=== PATIENT | female | born 1940 | race Caucasian/White ===

== ENCOUNTER 2016-07-17 09:42 | Inpatient (IN) | payer MEDICARE, OTHER ==
[~2016-07-17] VITALS: Ht 175.3 cm; Wt 117.0 kg
--- NOTE | ~2016-07-17 | ECHO ---
Transthoracic Echocardiography Report (TTE) Demographics Patient Name TYREE GUEVARA Date of Study 07/17/2016 Patient Number [id number] Visit Number [id number] Date of 1940 Room Number G6333 Accession Number [id number] Gender Female Age 76 year(s) Referring Conchita Peter [employer] Plant Worker Concha Phillips RVT, Physician RDCS Ty Abreu Physician Interpreting Indira Sheets Legal Paraprofessional Physician Supervising Ordering Physician Ty Abreu MD/MLP Nurse Stress Industrial Psychology Professor Conclusions Summary The estimated left ventricular ejection fraction is 35-40%. Moderate concentric left ventricular hypertrophy. Diastolic function indeterminate due to patient's arrhythmia. The left atrium is severely dilated. The right atrium is moderately dilated. Dilated IVC with poor inspiratory collapse consistent with elevated RA pressure. There is severe pulmonary hypertension. The pulmonary pressure (RVSP) is 69 mmHg. Small posterior pericardial effusion. Procedure Type of Study TTE procedure:2D Echocardiogram. Procedure Date Date: 07/17/2016 Start: 03:30 PM Study Location: Inpatient Portable Technical Quality: Adequate visualization Indications:CHF. Appropriate Use Criteria: 8 Patient Status: Routine Rhythm: Atrial fibrillation HR: 79 bpm BP: 166/97 mmHg M-Mode/2D Measurements LV Diastolic Dimension: 4.6 cm LV Systolic Dimension: 3.33 cm LV Septum Diastolic: 1.37 cm LV PW Diastolic: 1.39 cm AO Root Dimension: 3.1 cm Cardiac Output: 3.77 l/min LA Dimension: 4.5 cm LVOT: 2.3 cm LVOT VTI: 11.5 cm RV Base: 3.62 cm LV Stroke volume: 47.76 ml RV Length: 7.85 cm TAPSE: 1.76 cm TDI-S': 8.33 cm/s Doppler Measurements AV Peak Velocity: 0.79 m/s MV Peak E-Wave: 1.05 m/s AV Peak Gradient: 2.46 mmHg MV Peak A-Wave: 0.34 m/s AV Mean Gradient: 2 mmHg MV E/A Ratio: 3.09 LVOT Peak Velocity: 0.57 m/s MV P1/2t: 46 msec TR Gradient:54.46 mmHg PV Peak Velocity: 0.63 m/s Estimated RAP:15 mmHg PV Peak Gradient: 1.59 mmHg Estimated RVSP: 69 mmHg Estimated PASP: 69.46 mmHg E' Septal Velocity: 0.08 m/s A' Septal Velocity: 0.04 m/s E' Lateral Velocity: 0.12 m/s A' Lateral Velocity: 0.03 m/s Findings Left Ventricle Moderate concentric left ventricular hypertrophy. Diastolic function indeterminate due to patient's arrhythmia. Right Ventricle Mildly dilated right ventricle. Left Atrium The left atrium is severely dilated. There is no evidence of patent foramen ovale or atrial septal defect by color Doppler. Right Atrium The right atrium is moderately dilated. Dilated IVC with poor inspiratory collapse consistent with elevated RA pressure. IVC measures 2.94 cm. Mitral Valve Mild mitral regurgitation by color Doppler. Aortic Valve The aortic valve is mildly sclerotic. Tricuspid Valve Mild tricuspid regurgitation by color Doppler. There is severe pulmonary hypertension. The pulmonary pressure (RVSP) is 69 mmHg. Pulmonic Valve Normal pulmonic valve structure and function. Pericardial Effusion Small posterior pericardial effusion. Miscellaneous Visualized portions of the aortic root and ascending aorta appear normal in size. Pleural Effusion No evidence of pleural effusion. Contractility Score LV regional wall motion:(0-Non visualized 1-Normal 2-Hypokinesis 3-Akinesis 4-Dyskinesis 5-Aneurysm) Signature dtt: SAMMI SHAVER dtd: 07/17/16 1530 Physician Self Edit
--- NOTE | ~2016-07-17 | DS ---
PATIENT'S NAME: TYREE GUEVARA [facility] AGE: 76 Y [address] ROOM: [address] [address] LOCATION: GPCU ADMIT DATE: 07/17/2016 Discharge Summary DISCHARGE DATE: 07/21/2016 FAMILY PHYSICIAN: Oli Arango MD ATTENDING PHYSICIAN: Ty Abreu ADDENDUM: Discharge time spent on this patient is approximately 35 minutes, which included organizing home oxygen and also counseling the patient about this. TAM WILSON MD ODO/sridharl /[id number] d: 07/22/16 0137 t: 07/28/16 1416, DISCHARGE SUMMARY
--- NOTE | ~2016-07-17 | ENPV ---
Vascular Lower Extremities DVT Study Procedure Demographics Patient Name TYREE GUEVARA Date of Study 07/17/2016 Patient Number [id number] Gender Female Date of 1940 Age 76 Visit Number [id number] Height 69 Accession Number [id number] Weight 250.01 Referring Ty Cox Physician Physician Physician Ordering Physician Ty Abreu Thermostat Repairer Custom Bookbinder Bianca Nelson BS, RT Conclusions Summary TECHNIQUE: The veins of the lower extremities on the right and the left were evaluated from the groin to the ankle using olvera scale, compression, and augmentation. Venous hemodynamics were evaluated with color flow and spectral Doppler. FINDINGS: The deep veins of the legs bilaterally show normal color flow and compressibility without thrombosis. Incidental noted small focus chronic SVT in left lesser saphenous. IMPRESSION: NEGATIVE BILATERAL LOWER EXTREMITY VENOUS DOPPLER. Procedure Type of Study: Veins:Lower Extremities DVT Study, Venous Duplex Lower Extremity Bilateral. Indications for Study:Swelling of Limb. Patient Status:Routine. Study Location:Inpatient Portable. Technical Quality:Adequate visualization. - Preliminary reported to:Dr Crawford. Velocities are measured in cm/s ; Diameters are measured in cm Right Lower Extremities DVT Study Measurements Right 2D and Doppler Measurements + + + + +------+------+ + !Location !Visualized!Compressibility!Thrombosis!Signal!Reflux!Reflux ! ! ! ! ! ! ! !(sec) ! + + + + +------+------+ + !GSV Thigh !Yes !Yes !None !Phasic!No ! ! + + + + +------+------+ + !Common !Yes !Yes !None !Phasic!No ! ! !Femoral ! ! ! ! ! ! ! + + + + +------+------+ + !Prox !Yes !Yes !None !Phasic!No ! ! !Femoral ! ! ! ! ! ! ! + + + + +------+------+ + !Mid Femoral!Yes !Yes !None !Phasic!No ! ! + + + + +------+------+ + !Dist !Yes !Yes !None !Phasic!No ! ! !Femoral ! ! ! ! ! ! ! + + + + +------+------+ + !Popliteal !Yes !Yes !None !Phasic!No ! ! + + + + +------+------+ + !Gastroc !Yes !Yes !None !Phasic!No ! ! + + + + +------+------+ + !PTV !Yes ! ! !Phasic!No ! ! + + + + +------+------+ + !Peroneal !Yes ! ! !Phasic!No ! ! + + + + +------+------+ + Left Lower Extremities DVT Study Measurements Left 2D and Doppler Measurements + + + + +------+------+ + !Location !Visualized!Compressibility!Thrombosis!Signal!Reflux!Reflux ! ! ! ! ! ! ! !(sec) ! + + + + +------+------+ + !GSV Thigh !Yes !Yes !None !Phasic!No ! ! + + + + +------+------+ + !Common !Yes !Yes !None !Phasic!No ! ! !Femoral ! ! ! ! ! ! ! + + + + +------+------+ + !Prox !Yes !Yes !None !Phasic!No ! ! !Femoral ! ! ! ! ! ! ! + + + + +------+------+ + !Mid Femoral!Yes !Yes !None !Phasic!No ! ! + + + + +------+------+ + !Dist !Yes !Yes !None !Phasic!No ! ! !Femoral ! ! ! ! ! ! ! + + + + +------+------+ + !Popliteal !Yes !Yes !None !Phasic!No ! ! + + + + +------+------+ + !Gastroc !Yes !Yes !None !Phasic!No ! ! + + + + +------+------+ + !PTV !Yes ! ! !Phasic!No ! ! + + + + +------+------+ + !Peroneal !Yes ! ! !Phasic!No ! ! + + + + +------+------+ + Signature dtt: Fidencio Diaz dtd: 07/17/16 1505 Physician Self Edit
--- NOTE | ~2016-07-17 | HP ---
PATIENT'S NAME: [facility] AGE: 76 Y [address] ROOM: [place] [address] LOCATION: GPCU ADMIT DATE: 07/17/2016 History & Physical DISCHARGE DATE: FAMILY PHYSICIAN: Oli Arango MD ATTENDING PHYSICIAN: Lois KRISHNAN DATE OF SERVICE: CHIEF COMPLAINT: Shortness of breath. HISTORY OF PRESENT ILLNESS: The patient is a 76-year-old female with past medical history of atrial fibrillation, nonischemic systolic heart failure, PE, and factor V Leiden who presents here with worsening of shortness of breath. The patient reports that for the past 2-3 weeks she has been experiencing dyspnea on exertion on minimal exertion. The patient also reports that she at times gets shortness of breath even without exertion. She also reports of 16-pound gain in the past 3 weeks or so. The patient reports that she is compliant with diet and medication. However, she uses NSAIDs frequently. The patient currently denies chest pain, nausea, vomiting, fever, productive cough, chills, and diarrhea. The patient has had history of atrial fibrillation and has had multiple cardioversions in the past. PAST MEDICAL HISTORY: Persistent atrial fibrillation, DVT, systolic heart failure, PE, factor V Leiden, obesity, GERD. PAST SURGICAL HISTORY: Bilateral knee repair, left hip repair, and endoscopies. FAMILY HISTORY: The patient's father had history of liver cirrhosis and sister with lung cancer. SOCIAL HISTORY: The patient denies smoking and drinking. Lives with family. MEDICATIONS: Currently have been reconciled. REVIEW OF SYSTEMS: All systems have been reviewed and are negative except for what I mentioned in [facility] 76 Y [address] ROOM: [place] [id number] LOCATION: GPCU ADMIT DATE: 07/17/2016 History & Physical DISCHARGE DATE: FAMILY PHYSICIAN: Oli Arango MD ATTENDING PHYSICIAN: Lois KRISHNAN the [facility]. PHYSICAL EXAMINATION: VITAL SIGNS: Temperature 97.9, blood pressure 141/97, pulse rate of 83, respiratory rate of 16, and saturating 95% on 3 L. GENERAL APPEARANCE: The patient is alert and awake, lying on bed. No acute distress. HEAD: Normocephalic, atraumatic. EYES: Extraocular muscles intact. EARS: No ear discharge. NOSE: No nasal discharge. ORAL CAVITY: Moist oral cavity. HEART: Irregularly irregular. No murmurs, rubs, or gallops heard. CHEST: Mild bibasilar rales. ABDOMEN: Soft, nontender, and nondistended. Bowel sounds present. SKIN: Warm to touch with no obvious lesion. MUSCULOSKELETAL: Range of motion intact. No obvious joint effusion noted. EXTREMITIES: Bilateral pitting edema 3+. PRINT BUYER: Alert and oriented x3. Motor and sensory grossly intact. LABORATORY DATA: Troponin x1 negative. Lactate 2.2. INR of 5.43. Hemoglobin of 10, white blood cell count of 7, platelets of 244. Creatinine of 1.5, BUN of 27, potassium 4.2, magnesium 1.9, and CO2 of 25. Chest x-ray read by me shows vascular congestion. BNP of 7683. EKG shows atrial fibrillation with a ventricular rate of 79, non specific ST changes in V6. ASSESSMENT AND PLAN: 1. Acute hypoxic respiratory failure. The patient is a 76-year-old female with a past medical history of nonischemic cardiomyopathy, who presents here with [employer] symptom stage III to stage IV symptoms and weight gain of 16 pounds. Etiology most likely secondary to decompensated systolic heart failure. We will admit the patient. We will start the patient on diuretics, Lasix 40 mg IV t.i.d. Start the patient on spironolactone 25 mg daily. We will start the patient on low- salt diet. We will acquire echocardiogram and have strict I's and O's and daily weights. We will consult Cardiology. 2. Elevated INR of 5.4. We will hold Coumadin for now. The patient reports of recent fall 3 weeks ago and reports that she has not been feeling well since her fall. We will acquire CT head to rule out head bleed. We will hold Coumadin for now. As the patient does not show any bleeding, we will trend INR. We will hold reversal. Daily INR. If CT head shows a bleed, we will reverse INR. 3. Persistent atrial fibrillation. Rate controlled on amiodarone and Toprol- XL. We will continue current medication, holding Coumadin due to PATIENT'S NAME: GUEVARATYREE [facility] AGE: 76 Y [address] ROOM: [facility] [place], [place] [address] [facility] AD[facility] DATE: 07/17/2016 History & Physical DISCHARGE DATE: FAMILY PHYSICIAN: Oli Arango MD ATTENDING PHYSICIAN: Lois KRISHNAN elevated INR. 4. History of pulmonary embolism and deep vein thrombosis with factor V Leiden mutation. Current INR is 5.4, we will hold Coumadin for now and trend daily INR to keep INR between 2-3. D-dimer done in the emergency department shows elevated D-dimer. I highly suspect this is acute pulmonary embolism or deep vein thrombosis. However, we will acquire echocardiogram to further investigate RV strain. We will hold on CT angiogram due to chronic kidney disease. We will acquire lower extremity venous Doppler to further investigate acute deep vein thrombosis. If lower extremity Doppler shows acute deep vein thrombosis, we will consider IVC filter placement. If this is actually pulmonary embolism, we will then price changer as the patient is currently on anticoagulation and the patient does not show any signs of massive or submassive pulmonary embolism. We will follow the patient clinically. 5. Chronic kidney disease, ongoing. 6. Gastroesophageal reflux disease. We will start the patient on Protonix. 7. Morbid obesity, ongoing. I have personally reviewed the patient's medical records including but not limited to, blood work and radiology report. Total time spent with the patient is greater than 60 minutes, more than 50% of the time spent in direct patient care and patient consultation. Case was reviewed with the patient and the nursing staff. All questions were answered to patient's satisfaction. We will admit the patient. Code status on admission, full code. MD GENOVEVA JEREZ/modl /[id number] D: [id number] T: [id number] HISTORY & PHYSICAL
--- NOTE | ~2016-07-17 | DS ---
PATIENT'S NAME: TYREE GUEVARA [facility] AGE: 76 Y [address] [place] [facility] [place], [place] [address] LOCATION: GPCU ADMIT DATE: 07/17/2016 Discharge Summary DISCHARGE DATE: 07/21/2016 FAMILY PHYSICIAN: Oli Arango MD ATTENDING PHYSICIAN: Ty Abreu PRIMARY DIAGNOSES: 1. Acute on chronic systolic heart failure. 2. Supratherapeutic INR. 3. Nocturnal hypoxemia. 4. Chronic diseases include:. a. Chronic kidney disease, stage 3. b. Factor V Leiden. c. Paroxysmal atrial fibrillation. PRINCIPAL PROCEDURE: Done for the patient, none was indicated. LABORATORY DATA: On admission, 3 sets of cardiac enzymes were negative. ProBNP on admission was 7686, prior to discharge was 1560. WBC was stable throughout the hospital stay; H and H as well were stable throughout the hospital stay, prior to discharge were 10.2 and 33.7; platelet was also stable throughout the hospital stay. Potassium was 4.2 on admission, prior to discharge was 4.7; bicarb on admission was 25, highest level obtained was 33, prior to discharge was 28; glucose was also stable throughout the hospital stay. Liver function test was within normal limits throughout the hospital stay. INR on admission was 5.4, highest level obtained was 6.96, prior to discharge was 2.54. UA during the hospital stay with leukocytes 100, nitrite negative, wbc 5-10. Procalcitonin was less than 0.05. MICROBIOLOGY DATA: None was indicated. RADIOLOGY DATA: Chest x-ray was reported as normal chest. CT of the head without contrast, no acute hemorrhage, chronic right parieto-occipital infarct. Lower extremity duplex scan, negative bilateral lower extremity venous Doppler. Echocardiogram reported that ejection fraction 35% to 40%, moderate concentric LVH, diastolic function indeterminate due to the patient's arrhythmia, PA pressure 69, small pericardial effusion. HOSPITAL COURSE: For history of present illness, please take a look at the H and P, which was done by Dr. Crawford. The patient was admitted to Progressive Care Unit, had a Cardiology consult for acute on chronic systolic heart failure. The patient was managed as per the heart failure order set, was diuresed with Lasix 40 mg b.i.d. Weight on admission was 273, prior to discharge weight was 257. The patient also did present with acute hypoxic respiratory failure, and from the first day of the hospital stay, her oxygen PATIENT'S NAME: TYREE GUEVARA [facility] AGE: 76 Y [address] ROOM: [id number] [place], [place] [address] LOCATION: GPCU ADMIT DATE: 07/17/2016 Discharge Summary DISCHARGE DATE: 07/21/2016 FAMILY PHYSICIAN: Oli Arango MD ATTENDING PHYSICIAN: Ty Abreu was eventually weaned off to room air. However, on room air, she was saturating 90s at rest. She did also present with supratherapeutic INR, and her Coumadin was held throughout her whole hospital stay, and her INR was monitored, and upon discharge, her INR dropped to 2.56, so the patient was instructed to restart her Coumadin upon discharge. By the next day of the hospital stay, the patient began to ambulate with physical therapy as well as occupational therapy. Even though she was successfully weaned off oxygen to room air, there was concern that probably the patient may also require some oxygen with exertion; however, she did not qualify for this. The night prior to discharge, an overnight trend ox was done, for which the patient did qualify for home O2 at bedtime. Also of note, after the patient was reviewed by Cardiology, Dr. Bose decided to hold off on the amiodarone because of concern for toxicity, so the patient's amiodarone was held during the hospital stay and was also discontinued upon discharge. On the day of discharge, the patient's vital signs were stable. She was saturating fine on room air, and she was discharged home with home oxygen. MEDICATIONS ON DISCHARGE: 1. Lexapro 10 mg p.o. daily. 2. Lasix 40 mg p.o. daily. 3. Norvasc 5 mg p.o. daily, new medication. 4. Lisinopril 20 mg p.o. daily. 5. Toprol-XL 25 mg p.o. daily. 6. Tylenol Arthritis 1300 mg p.o. daily p.r.n. 7. Humibid 600 mg p.o. twice daily, [id number] new medication. 8. Aldactone 25 mg p.o. daily, new medication. 9. Hydrocodone and acetaminophen 5/325 mg one to two tablets every 4 hours p.r.n. 10. PreserVision 2 Soft Gel one capsule p.o. daily. 11. Coumadin 5 mg p.o. 5 days per week. 12. Coumadin 10 mg p.o. 2 days per week. 13. Afrin 1 spray to nose every 12 hours. DISCHARGE INSTRUCTIONS: The patient is to follow up with her regular family doctor in the next 3 to 4 days for an INR check, and the patient is to follow up with Dr. Bose, her sewer pipe cleaner. MD JOSE CRUZ ARENAS/miguel PATIENT'S NAME: TYREE GUEVARA [facility] AGE: 76 Y [address] ROOM: [place] [address] [facility]: 07/17/2016 Discharge Summary DISCHARGE DATE: 07/21/2016 FAMILY PHYSICIAN: Oli Arango MD ATTENDING PHYSICIAN: Ty Abreu /[id number] d: 07/22/16 0136 t: 07/28/16 1413, DISCHARGE SUMMARY
--- NOTE | ~2016-07-17 | PUL ---
PATIENT'S NAME: TYREE GUEVARA [facility] AGE: 76 Y [address] ROOM: [address] [address] LOCATION: GPCU ADMIT DATE: 07/17/2016 Pulmonary DISCHARGE DATE: 07/21/2016 FAMILY PHYSICIAN: Oli Arango MD ATTENDING PHYSICIAN: Lois KRISHNAN NAME OF PROCEDURE: Nighttime Oximetry DATE OF PROCEDURE: July 20 to July 21, 2016 REASON FOR EXAM: Nocturnal hypoxemia RESULTS: Total recording time of 8 hours, 48 minutes, and 16 seconds. The total valid sampling time was 8 hours, 29 minutes, and 48 seconds. The highest pulse was 112 beats per minute, lowest pulse was 71 beats per minute, and the mean pulse was 83 beats per minute. The highest SpO2 was 98%, lowest SpO2 was 52%, with mean SpO2 of 86%. The patient spent 4 hours, 41 minutes, and 44 seconds which is 55.3% of the total valid sampling time below 89%. The patient desaturation index was 64.4. PHYSICIAN INTERPRETATION: The patient meets Medicare criteria category one for nighttime oxygen and the patient has a very high desaturation index which is suggestive of obstructive sleep apnea. Clinical correlation is recommended. Thank you for allowing to participate in care of this patient. MD PAUL DE GUZMAN/ivet /[id number] dtt: 07/29/16 1052 , Darryl Mojica dtd: 07/23/16 1108
--- NOTE | ~2016-07-17 | CON ---
PATIENT'S NAME: TYREE JOHNSTON [facility] AGE: 76 Y [address] ROOM: [id number] [place], [place] [address] LOCATION: [facility] ADMIT DATE: 07/17/2016 Consultation DISCHARGE DATE: FAMILY PHYSICIAN: Oli Arango MD ATTENDING PHYSICIAN: Lois CRAWFORD DATE OF CONSULTATION: 07/17/2016 REFERRING PHYSICIAN: Cris Bose MD Dear Dr. Crawford: Thank you for asking me to see Ms. Johnston, who is a 76-year-old female patient known to have congestive heart failure, paroxysmal atrial fibrillation, as well as bilateral pulmonary emboli due to factor V Leiden deficiency. She was doing reasonably well after her last hospitalization in 2015, when she underwent cardiac catheterization with Dr. Bose. About a month ago, she had an accidental fall after which she seemed to be getting progressively worse as far as her breathing is concerned. She was seen by Dr. Arango in [place] yesterday for swelling and shortness of breath and was given Lasix and an EKG was done along with chest x-ray. This morning, she was worse and so he had her come to the emergency room where she was found to be in congestive heart failure and was hospitalized. In addition to the shortness of breath which seemed to be occurring even at minimal exertion at this time making her functional class IV, the patient has no history of orthopnea or paroxysmal nocturnal dyspnea. She is not keeping a list of her weight, but she has noticed some ankle swelling. She has a dry cough. She also has noticed over the last month a soreness in the mid chest that lasted for about 15 minutes without any radiation or associated features. She has no other chest pains. There is no history of lightheadedness, dizziness, syncope, presyncope, or palpitations. The patient has history of hypertension recently. She denies diabetes or elevated cholesterol or tobacco abuse. She has no family history of premature coronary artery disease. The patient denies ND or angina or nitroglycerin use. There is no history of rheumatic fever. She has congestive heart failure. She has had AFib intermittently for 5 years. Her echocardiogram done last year reveals an EF of about 30%-35% with RV hypokinesia. She had another echo done sometime earlier today. MEDICATIONS: 1. PreserVision. PATIENT'S NAME: JOHNSTON [facility] AGE: 76 Y [address] ROOM: [place] [address] LOCATION: GPCU ADMIT DATE: 07/17/2016 Consultation DISCHARGE DATE: FAMILY PHYSICIAN: Oli Arango MD ATTENDING PHYSICIAN: Lois CRAWFORD 2. Warfarin 5 mg five days a week. 3. Hydrocodone/acetaminophen 1-2 tablets q.i.d. p.r.n. 4. Tylenol p.r.n. 5. Metoprolol 25 mg a day. 6. Lisinopril 20 mg a day. 7. Amiodarone 200 mg b.i.d. 8. Warfarin 10 mg 2 days a week. 9. Lasix 40 mg a day. 10. Lexapro 10 mg a day. 11. Afrin nasal spray, 1 spray by nose. ALLERGIES: SULFA. PAST MEDICAL HISTORY: 1. 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 2. Replacement of both knees. 3. Hip replacement. 4. Hysterectomy and ovariectomy. 5. Tonsillectomy and adenoidectomy. 6. Cataracts, bilaterally. 7. Cholecystectomy. 8. Factor V Leiden deficiency with bilateral pulmonary PE. SOCIAL HISTORY: The patient is . She denies abusing alcohol. Her appetite and weight are stable. Sleep is poor. FAMILY HISTORY: No premature coronary artery disease. REVIEW OF SYSTEMS: A 12-point review of systems reveal: 1. The patient has some weird dreams. 2. Migraine headaches which has resolved after her hysterectomy. 3. Corrective lenses. 4. Wheezing. 5. History of stomach ulcers. 6. CKD. 7. DJD. PHYSICAL EXAMINATION: VITAL SIGNS: On examination, her blood pressure is 160/80, heart rate is in the 80s and irregular, respiration is 18, and afebrile. HEENT: Normal. PATIENT'S NAME: PAOLA [facility] AGE: 76 Y [address] ROOM: [place] [address] LOCATION: GPCU ADMIT DATE: 07/17/2016 Consultation DISCHARGE DATE: FAMILY PHYSICIAN: Oli Arango MD ATTENDING PHYSICIAN: Lois CRAWFORD NECK: Supple with no JVD, thyromegaly, lymphadenopathy, or carotid bruit. CARDIAC: PMI is not well located. First and second heart sounds are irregular. There are no added sounds. There may be right-sided third heart sound with some wheezing heard. She does have few basal crackles. ABDOMEN: Obese. EXTREMITIES: Reveal 1+ edema. CENTRAL NERVOUS SYSTEM: Intact. DIAGNOSTIC STUDIES: A 12-lead EKG today reveals atrial fibrillation with controlled ventricular response at a rate of about 79 beats per minute without any acute changes. 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 We will hold off amiodarone for now and give her some Lasix to see how she does overnight. Further management is per Dr. Bose. Again, I appreciate this opportunity to participate in the care of Ms. Johnston. MD YOSVANY THOMPSON/miguel /[id number] d: 07/18/16 0101 t: 07/23/16 1350, CONSULTATION REPORT
--- NOTE | ~2016-07-17 | ER ---
PATIENT'S NAME: PAOLA [facility] AGE: 76 Y [address] ROOM: [place] [address] LOCATION: GPCU ADMIT DATE: 07/17/2016 ER/Outpatient Report DISCHARGE DATE: FAMILY PHYSICIAN: Oli Arango MD ATTENDING PHYSICIAN: Lois CRAWFORD Time of arrival: 0942 hours. Time of evaluation: 0947 hours. CHIEF COMPLAINT: Shortness of breath. HISTORY OF PRESENT ILLNESS: The patient is a 76-year-old female, who presents to the emergency department today with chief complaint of shortness of breath. She reports this started about 2 weeks prior to arrival, but got worse this morning. The patient was seen by her primary care doctor yesterday and was given some more Lasix. The patient reports that she has had some swelling in her lower extremities bilaterally. No pain. She reports she occasionally has pain in her mid chest that is fluttering type pain. The patient does have a history of atrial fibrillation as well. She reports she feels bloated and just does not want to eat anything. Denies any fevers or chills. She does have some nausea. No vomiting. No diarrhea or constipation. No headache. Mild cough, it is nonproductive. PAST MEDICAL HISTORY: 1. Paroxysmal atrial fibrillation. 2. Bilateral DVT. 3. Factor five Leiden. 4. Chronic long-term anticoagulation with Coumadin. 5. Hypertension. 6. Peptic ulcer disease. PAST SURGICAL HISTORY: 1. Previous cardioversions x3. 2. Bilateral knee replacement. 3. Left hip replacement. 4. Upper endoscopy x2. FAMILY HISTORY: Mother lived to the age of 90. No chronic health problems. Father had alcohol cirrhosis. Sister with lung cancer. SOCIAL HISTORY: The patient denies any tobacco, alcohol, or illicit drug use. PATIENT'S NAME: [facility] AGE: 76 Y [address] ROOM: [address] [address] LOCATION: GPCU ADMIT DATE: 07/17/2016 ER/Outpatient Report DISCHARGE DATE: FAMILY PHYSICIAN: Oli Arango MD ATTENDING PHYSICIAN: Lois CRAWFORD ALLERGIES: TO SULFA, WHICH CAUSES ITCHING. MEDICATIONS: 1. Amiodarone. 2. Coumadin. 3. Lexapro. 4. Metoprolol. 5. Lisinopril. 6. Lasix. 7. Bumetanide. REVIEW OF SYSTEMS: All systems are reviewed by myself and negative with the exception of those discussed in HPI and past medical history. PHYSICAL EXAMINATION: VITAL SIGNS: Weight 124 kg. Blood pressure 141/97, pulse 83, respiratory rate 20, temperature 97.9, oxygen saturation 89% to 91% on room air and 95% on 3 L nasal cannula. GENERAL: The patient is a 76-year-old female, who appears in mild acute distress secondary to respiratory distress. She is obese. HEENT: Normocephalic and atraumatic. Pupils are equal, round, and reactive to light. Mucous membranes moist. NECK: Supple. There is no nuchal rigidity. CARDIOVASCULAR: Irregularly irregular. LUNGS: Clear to auscultation with some fine crackles noted at the bases. ABDOMEN: Soft, nontender, and nondistended. No rebound, rigidity, or guarding. MUSCULOSKELETAL: The patient moves all 4 extremities. SKIN: Warm and dry. 2+ pretibial edema in bilateral lower extremities. LABORATORY DATA AND X-RAYS: Labs and x-rays are obtained. Lactate is 2.3. EKG is obtained and interpreted by myself at 0958 hours that shows atrial fibrillation with a rate of 79, normal axis, normal intervals. There is no ST elevation. There is slight ST depression in V5 and V6. No T-wave inversions. This is not significantly changed from 09/2015. CBC is normal. INR is 5.43. D-dimer is 1.63. CMP unremarkable except for chloride 111, BUN 27, creatinine 1.5. LFTs are normal. Procalcitonin was less than 0.05. Magnesium is normal. CK is normal. CK-MB is normal. Troponin is normal. Chest x-ray shows no acute process. As interpreted by the radiologist, there is some questionable haziness at the bases on my read. PATIENT'S NAME: TYREE GUEVARA [facility] AGE: 76 Y [address] ROOM: [place] [address] LOCATION: GPCU ADMIT DATE: 07/17/2016 ER/Outpatient Report DISCHARGE DATE: FAMILY PHYSICIAN: Oli Arango MD ATTENDING PHYSICIAN: Lois CRAWFORD IMPRESSION: 1. Acute hypoxic respiratory failure, requiring 3 L nasal cannula. 2. Acute on chronic systolic congestive heart failure with last known EF 30% to 35%. Diastolic function unknown due to the patient's arrhythmia. 3. Atrial fibrillation with slow ventricular response. 4. Supratherapeutic INR, on Coumadin. 5. Acute on chronic kidney disease. 6. Elevated D-dimer. 7. Initial visit. EMERGENCY DEPARTMENT COURSE: The patient brought back to the examination room. Seen and evaluated by myself. IV is established. Laboratory analysis and imaging are obtained as described above. The patient is given a DuoNeb breathing treatment. She is given 40 mg of Lasix IV. Breathing treatment has slightly improved the patient's symptoms. The patient is urinating. I have discussed results with the patient, her , and daughter who are at the bedside. I have recommend admission hospital for further evaluation, treatment, and management. I have discussed the case with Dr. Crawford, who has seen and evaluated the patient down here in the emergency department. He does agree to accept the patient for further evaluation, treatment, and management. DISPOSITION: The patient is admitted under the care of Hospitalist Service in stable condition. KINGSTON STAPLETON DO KJR/modl /[id number] d: 07/17/16 1444 t: 07/19/16 1801, OUTPATIENT REPORT
[~2016-07-17 09:42] MED LIST: CORDARONE,PACE200 MG PO; COUMADIN ** IA5 MG PO; COUMADIN **IA10 MG PO; HYDROCODON-ACE1 EAC4 PO; HYDRODIURIL25 MG PO; LEXAPRO10 MG PO; LIPITOR10 M1 PO; LISINOPRIL-HCT1 EAC2 PO; LISINOPRIL20 MG PO; LOPRESSOR25 MG PO; NEXIUM20 MG PO; NORCO 5-325 MG1 TAB PO; PRESERVISION A1 EACH PO; PRESERVISION L1 EACH PO; PRINIVIL (ZESTR20 MG PO; RYTHMOL150 MG PO; RYTHMOL225 M1 PO; TOPROL XL25 MG PO; TOPROL XL50 MG PO; TYLENOL ARTHRI650 MG PO; TYLENOL EXTRA500 MG PO
[2016-07-17 10:12] LABS: BASOPHIL % 0.4 %; EOSINOPHIL # 0.1 K/uL (0.0-0.5); HEMATOCRIT 36.4 % (33.0-46.0); HEMOGLOBIN 10.9 g/dL (10.0-15.0); IMMATURE GRANULOCYTE % 0.3 %; LYMPHOCYTE # 1.3 K/uL (0.8-4.0); LYMPHOCYTE % 19.1 %; MCH 27.9 pg (27.0-34.0); MCHC 29.9 gm/dL (32.0-36.5); MCV 93.1 fl (83.0-98.0); MONOCYTE # 0.7 K/uL (0.0-1.0); MONOCYTE % 9.6 %; MPV 10.5 fl (9.4-12.4); NEUTROPHIL # (ANC) 4.8 K/uL (1.8-7.8); NEUTROPHIL % 68.6 %; NRBC % 0 /100WBC (0-0.00); PLATELET COUNT 244 K/uL (150-450); RBC 3.91 M/uL (3.50-5.50); RDW-CV 17.2 % (11.9-14.6)
[2016-07-17 10:20] LABS: PTT 41 SECONDS (25-32)
[2016-07-17 10:21] LABS: INR - (THERAPEUTIC) 5.43 (0.92-1.07)
[2016-07-17 10:29] LABS: ALBUMIN 3.4 gm/dL (3.5-5.0); ALK PHOS 97 IU/L (33-138); ALT 24 IU/L (12-78); ANION GAP 12.2 (10.0-19.0); AST 31 IU/L (10-40); BLOOD UREA NITROGEN 27 mg/dL (6-24); CALCIUM 8.5 mg/dL (8.5-10.5); CHLORIDE 111 mMol/L (96-110); CO2 25 mMol/L (22-32); CPK 70 IU/L (21-215); CREATININE 1.5 mg/dL (0.5-1.1); ESTIMATED GFR (MDRD EQUATION) 34; MAGNESIUM 1.9 mg/dL (1.8-2.6); POTASSIUM 4.2 mMol/L (3.7-5.1); SODIUM 144 mMol/L (135-145); TOTAL PROTEIN 7.3 g/dL (6.0-8.4)
[2016-07-17] MEDS ORDERED: COUMADIN ** IA5 MG PO (13:01)
[2016-07-17] MEDS ORDERED: LASIX40 MG PO (13:02)
[2016-07-17] MEDS ORDERED: AFRIN) (GENASAL15 ML NOSE (13:02)
[2016-07-17] MEDS ORDERED: LEXAPRO10 MG PO (13:02)
--- NOTE | 2016-07-17 13:04 | NUR ---
Pt is 76 y/o female admit for CHF/respiratory distress/hypoxia for hospitalist. Pt alert and oriented x3. Allergy to Sulfa. Edema to lower legs and feet. uses bedside commode to void. Hx htn,palpitations,afib, cardioversions x3,Factor 5,DVT,PE,SOB,anemia,pneumonia,anxiety and depression. Came through ED. Pt resides at home with her and a great granddaughter they adopted. Pt states she tripped and fell backwards and hit her head and ever since then she's been increasingly SOB.
--- NOTE | 2016-07-17 17:20 | NUR ---
PATIENT ADMITTED FOR CHF EXACERBATION. PATIENT IS UP IN ROOM TO BEDSIDE COMMODE AD CHANDA. O2 AT 5 LITERS NC. DENIES PAIN. ASKED TO TAKE A SHOWER UPON ARRIVAL. SHE HAS TAKEN A SHOWER AND TOLERATED WELL. SHE HAS DIURESED 2000ML SO FAR SINCE ARRIVING TO FLOOR.
[2016-07-17 20:52] LABS: ALBUMIN 3.5 gm/dL (3.5-5.0); ALK PHOS 93 IU/L (33-138); ALT 25 IU/L (12-78); AST 34 IU/L (10-40); TOTAL PROTEIN 7.3 g/dL (6.0-8.4)
[2016-07-18 04:04] LABS: ALBUMIN 3.1 gm/dL (3.5-5.0); ANION GAP 12.3 (10.0-19.0); CALCIUM 8.1 mg/dL (8.5-10.5); CREATININE 1.3 mg/dL (0.5-1.1); MAGNESIUM 1.6 mg/dL (1.8-2.6); POTASSIUM 3.3 mMol/L (3.7-5.1); TOTAL BILIRUBIN 0.9 mg/dL (0.0-1.5); TOTAL PROTEIN 6.5 g/dL (6.0-8.4)
[2016-07-18 04:10] LABS: PROTIME 74.5 SECONDS (9.8-11.4)
[2016-07-18 04:11] LABS: INR - (THERAPEUTIC) 6.96 (0.92-1.07)
--- NOTE | 2016-07-18 06:30 | NUR ---
Significant Event: A&O. 5L NC, INTERMITTENT APNEA WHILE ALSEEP. PT UP TO BSC MULTIPLE TIMES THIS SHIFT. Follow up: LISA KING TO MONITOR, WEAN OXYGEN
--- NOTE | 2016-07-18 11:51 | NUR ---
Introduced self and purpose of heart healthy education. Calendar given, information reviewed, verbalized understanding.
--- NOTE | 2016-07-18 15:30 | NUR ---
Introduced self and role of care management to patient and a friend. Patient lives in [place] with her and 2 daughters. 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 She says youngest daughter is 16 (they adopted their great granddaughter) and she says she is the toughest on her doing what she is suppose to. She has been using a walker at home recently as she fell a few weeks ago and just has been a little more unsteady lately. She does not use O2 at home. She plans home when ready for discharge. Will follow.
--- NOTE | 2016-07-18 17:17 | NUR ---
Significant Event:Patient has had Lasix IV twice today. Up in chair and to bathroom. O2 decreased from 5L to 2L. Has had a BM. Did get 2 gm Mg this morning, and 40mEq KCl this morning. Appetite good. Follow up:Monitor urine output
[2016-07-19 04:29] LABS: ALBUMIN 2.9 gm/dL (3.5-5.0); ANION GAP 10.7 (10.0-19.0); CALCIUM 7.7 mg/dL (8.5-10.5); CREATININE 1.5 mg/dL (0.5-1.1); MAGNESIUM 1.9 mg/dL (1.8-2.6); POTASSIUM 3.7 mMol/L (3.7-5.1); TOTAL PROTEIN 6.2 g/dL (6.0-8.4)
[2016-07-19 04:30] LABS: PROTIME 71.6 SECONDS (9.8-11.4); TOTAL BILIRUBIN 0.7 mg/dL (0.0-1.5)
[2016-07-19 04:36] LABS: INR - (THERAPEUTIC) 6.69 (0.92-1.07)
--- NOTE | 2016-07-19 07:43 | NUR ---
Significant Event: Patient alert and oriented x3. Vital signs stable. On 1-3L O2. Periods of apnea noticed. Right hand PIV saline locked. [place] given x1 for complaints of headache with relief. Good urine output. Up with stand-by assist to bathroom. Calm and cooperative with all cares. Follow up: Will continue to monitor per plan of care.
--- NOTE | 2016-07-19 17:56 | NUR ---
Significant Event: VSS ON 2-3L/NC WITH LUNG SOUNDS CLEAR/DIM. ORTHOSTATICS THIS AM WITH READING RECORDED IN CHART. PLACED ON 1500ML/DAY FLUID RESTRICTION. LASIX DECREASED TO 40MG IV QDAY. THIS AM WEIGHT 116.7 KG. ORDERS FOR STRICT I/O AND TO WEIGH DAILY ON STANDING SCALE. UP WITH THERAPY, SBA WITH WALKER AND GAIT BELT AMBULATING IN HALLS AND TO BATHROOM FREQUENTLY. NO BM TODAY. 700ML TOTAL OF UOP. MUCINEX STARTED FOR THICK PHLEGM, NON-PRODUCTIVE COUGH. APNEIC PERIODS WHILE SLEEPING. NO C/O PAIN. Follow up: CONT TO MONITOR PER PLAN OF CARE.
--- NOTE | 2016-07-20 04:03 | NUR ---
Significant Event: Patient A/Ox3. VSS on 2L. Up 1-assist with walker and gait belt. Pateint does get very apneic at night and pulls her nasal canula off in her sleep. Desats to around 80% when this happens but recovers very quickly. Follow up: Sleep study in the future? Home next few days
[2016-07-20 04:40] LABS: BASOPHIL % 0.4 %; EOSINOPHIL # 0.2 K/uL (0.0-0.5); EOSINOPHIL % 3.5 %; HEMATOCRIT 33.7 % (33.0-46.0); HEMOGLOBIN 10.2 g/dL (10.0-15.0); IMMATURE GRANULOCYTE % 0.4 %; LYMPHOCYTE # 1.7 K/uL (0.8-4.0); LYMPHOCYTE % 24.6 %; MCH 27.6 pg (27.0-34.0); MCHC 30.3 gm/dL (32.0-36.5); MCV 91.1 fl (83.0-98.0); MONOCYTE # 0.9 K/uL (0.0-1.0); MONOCYTE % 12.8 %; MPV 10.5 fl (9.4-12.4); NEUTROPHIL % 58.3 %; NRBC % 0 /100WBC (0-0.00); PLATELET COUNT 233 K/uL (150-450); RDW-CV 16.9 % (11.9-14.6); WBC 6.9 K/uL (4.0-11.0)
[2016-07-20 04:57] LABS: INR - (THERAPEUTIC) 4.23 (0.92-1.07); PROTIME 45.1 SECONDS (9.8-11.4)
[2016-07-20 04:59] LABS: ALBUMIN 2.9 gm/dL (3.5-5.0); ANION GAP 12.5 (10.0-19.0); CALCIUM 8.1 mg/dL (8.5-10.5); CREATININE 1.5 mg/dL (0.5-1.1); MAGNESIUM 2.1 mg/dL (1.8-2.6); POTASSIUM 4.5 mMol/L (3.7-5.1); TOTAL BILIRUBIN 0.7 mg/dL (0.0-1.5); TOTAL PROTEIN 6.4 g/dL (6.0-8.4)
[2016-07-20 15:00] LABS: BILIRUBIN URINE NEGATIVE (NEGATIVE); BLOOD URINE NEGATIVE /UL (NEGATIVE); COLOR URINE YELLOW (YELLOW); GLUCOSE URINE NEGATIVE (NEGATIVE); KETONE URINE NEGATIVE (NEGATIVE); LEUKOCYTES URINE 100 /UL (NEGATIVE); NITRITE URINE NEGATIVE (NEGATIVE); PROTEIN URINE NEGATIVE (NEGATIVE); TURBIDITY URINE CLEAR (CLEAR); UROBILINOGEN URINE NORMAL (NORMAL)
[2016-07-20 15:09] LABS: BACTERIA URINE MODERATE (NEGATIVE); EPITHELIAL URINE 0-2 #/HPF (NEGATIVE); RBC URINE NEGATIVE #/HPF (NEGATIVE)
[2016-07-20 15:10] LABS: MUCUS URINE NEGATIVE (NEGATIVE)
--- NOTE | 2016-07-20 17:12 | NUR ---
Significant Event: BP 180/90'S THIS MORNING WITH NORVASC ADDED TO LIST. NOW SBP 120-140'S. O2 WEANED FROM 2L/NC TO RA WITH SATS >90%. OVERNIGHT TREND OX THIS EVENING. IV LASIX CHANGED TO PO. STRICT I/O. NO BM TODAY. ORDER FOR NO IV ACCESS OK. UA COLLECTED. UP 1PA WITH WALKER. NO C/O PAIN. Follow up: HOME TOMORROW. LABS IN AM. CONT TO MONITOR. TREND OX TONIGHT. NEED CHF EDUCATION AND TEACHING ON LOW SALT DIET.
--- NOTE | 2016-07-21 05:33 | NUR ---
Significant Event: TYLENOL GIVEN X1 FOR LEG PAIN. PT SLEEPING OFF/ON ALL NIGHT. VERY RESTLESS. WHILE ASLEEP, SHE IS RESTLESS WITH SOME 20 SECONDS OF APNEA PERIODS. TREND OX OVERNIGHT AND SHE IS GETTING LOW 69% ON ROOM AIR. 02 APPLIED AT 1L AT AROUND 0400 BY RT. UP WITH WALKER WITH SLIGHTLY UNSTEADY GAIT. Follow up:
[2016-07-21 06:45] LABS: ALBUMIN 3.1 gm/dL (3.5-5.0); ANION GAP 11.7 (10.0-19.0); CALCIUM 8.4 mg/dL (8.5-10.5); CREATININE 1.5 mg/dL (0.5-1.1); MAGNESIUM 2.1 mg/dL (1.8-2.6); POTASSIUM 4.7 mMol/L (3.7-5.1); TOTAL BILIRUBIN 0.7 mg/dL (0.0-1.5); TOTAL PROTEIN 6.8 g/dL (6.0-8.4)
[2016-07-21 06:50] LABS: INR - (THERAPEUTIC) 2.56 (0.92-1.07); PROTIME 27.1 SECONDS (9.8-11.4)
[2016-07-21] MEDS ORDERED: NORVASC5 MG PO (10:30)
[2016-07-21] MEDS ORDERED: HUMIBID LA (MU600 MG PO (10:45)
[2016-07-21] MEDS ORDERED: ALDACTONE25 MG PO (10:46)
--- NOTE | 2016-07-21 13:10 | NUR ---
A&O.SBA. VSS. RA. AFEBRILE. SHOWERED. LS CLEAR/DIM. VD PER BR WNL. BS WNL. CSM WNL. NO IV. DC INSTRUCTIONS REVIEWED. PT TAKEN TO LOBBY WITH VIA WC TO PRIVATE VEHICLE HOME
== END 2016-07-21 13:14 | disposition disaster alternative care site (69) | DRG 291 ==
LOC: GMED 09:42 → GPCU 10:52
PROVIDERS: Emergency Medicine; Hospitalist; Internal Medicine Interventional Cardiology; ADMIT Internal Medicine
DX: I13.0 Hypertensive heart and chronic kidney disease with heart failure and stage 1 through stage 4 chronic kidney disease, or unspecified chronic kidney disease (principal); J96.01 Acute respiratory failure with hypoxia; I26.99 Other pulmonary embolism without acute cor pulmonale; I50.23 Acute on chronic systolic (congestive) heart failure; N17.9 Acute kidney failure, unspecified; I48.1 Persistent atrial fibrillation; K21.9 Gastro-esophageal reflux disease without esophagitis; E66.01 Morbid (severe) obesity due to excess calories; I42.9 Cardiomyopathy, unspecified; N18.3 Chronic kidney disease, stage 3 (moderate); Z86.711 Personal history of pulmonary embolism; Z86.718 Personal history of other venous thrombosis and embolism; Z79.01 Long term (current) use of anticoagulants; Z88.2 Allergy status to sulfonamides
CPT/HCPCS: J1940; J3475

== ENCOUNTER 2016-08-15 13:44 | Observation (INO) | payer MEDICARE, OTHER ==
[~2016-08-15] VITALS: Ht 165.1 cm; Wt 117.9 kg
--- NOTE | ~2016-08-15 | ER ---
PATIENT'S NAME: [facility] AGE: 76 Y [address] ROOM: [place] [address] LOCATION: GPCU ADMIT DATE: 08/15/2016 ER/Outpatient Report DISCHARGE DATE: FAMILY PHYSICIAN: Oli Arango MD ATTENDING PHYSICIAN: DEB NESS Time of Arrival: 1349 hours. Time of Evaluation: 1349 hours. CHIEF COMPLAINT: Low blood pressure. HISTORY OF PRESENT ILLNESS: The patient is a 76-year-old female, who presents to the emergency department today with chief complaint of low blood pressure. She was initially seen and evaluated at Dr. Weiner's office and was found to have a blood pressure in the 70s systolic and looked pale. Thus, they sent her in here for further evaluation now. Complains of headache, currently 5/10 in severity. She denies any chest pain. She does report some squeezing in her shoulders and some mild shortness of breath. The patient denies any fevers or chills. No nausea or vomiting. No diarrhea or constipation. PAST MEDICAL HISTORY: Paroxysmal atrial fibrillation, bilateral DVT, factor V Leiden, chronic long- term anticoagulation with Coumadin, hypertension, and peptic ulcer disease. PAST SURGICAL HISTORY: Previous cardioversions x3, bilateral knee replacement, left hip replacement, upper endoscopy x2. FAMILY HISTORY: Alcoholic cirrhosis. Sister with lung cancer. SOCIAL HISTORY: The patient denies any tobacco, alcohol, or illicit drug use. ALLERGIES: SULFA. MEDICATIONS: 1. Amiodarone. 2. Coumadin. 3. Lexapro. 4. Metoprolol. PATIENT'S NAME: [facility] AGE: 76 Y [address] ROOM: [place] [address] LOCATION: GPCU ADMIT DATE: 08/15/2016 ER/Outpatient Report DISCHARGE DATE: FAMILY PHYSICIAN: Oli Arango MD ATTENDING PHYSICIAN: DEB NESS 5. Lisinopril. 6. Lasix. 7. Bumetanide. REVIEW OF SYSTEMS: All systems are reviewed by myself and are negative with the exception of those discussed in the HPI and past medical history. PHYSICAL EXAMINATION: VITAL SIGNS: Weight 115.9 kg, blood pressure 98/56, pulse 77, respiratory rate 22, temperature 96.2, oxygen saturation 91% on room air. GENERAL: The patient is a 76-year-old female, who appears her stated age, does appear pale. She is obese. HEENT: Normocephalic, atraumatic. Pupils are equal, round, and reactive to light and accommodation. Extraocular motions are intact. Nares are patent bilaterally. Conjunctivae are normal. NECK: Supple. There is no nuchal rigidity. CARDIOVASCULAR: Irregularly irregular. LUNGS: Clear to auscultation bilaterally. No wheezes, rales, or rhonchi. ABDOMEN: Soft, nontender, and nondistended. No rebound, rigidity, or guarding. MUSCULOSKELETAL: The patient moves all 4 extremities. SKIN: Warm and dry. LABORATORY DATA AND X-RAYS: EKG is obtained, interpreted by myself at 1406 hours shows atrial fibrillation with a rate of 73, normal axis, normal interval. No ST elevation, ST depression, T-wave inversions. CBC is normal. Lactate is 2.3. PTT is 50, PT is 53.1, INR is 4.98. Mag is normal. CK, CK-MB, and troponin are normal. CMP unremarkable, except for BUN 32 and creatinine 2.2. LFTs are normal. CT scan of the brain was obtained. It shows old occipital ischemia with no acute process. I did discuss this result with the radiologist. Chest x-ray shows improved aeration. Free T4 is normal. TSH is 4.32. ProBNP is 3028. Procalcitonin is less than 0.05. IMPRESSION: 1. Hypotension, improved with IV fluids. 2. Suspected over-diuresis. PATIENT'S NAME: TYREE GUEVARA [facility] AGE: 76 Y [address] ROOM: [address] [address] LOCATION: GPCU ADMIT DATE: 08/15/2016 ER/Outpatient Report DISCHARGE DATE: FAMILY PHYSICIAN: Oli Arango MD ATTENDING PHYSICIAN: DEB NESS 3. Acute renal injury. 4. Supratherapeutic INR. 5. Initial visit. EMERGENCY DEPARTMENT COURSE: The patient was brought back to the examination room. Seen and evaluated by myself. IV is established. The patient is given a liter of normal saline. Laboratory analysis and imaging are obtained as described above. I have discussed results with the patient and her sisters at the bedside. I recommended admission to the hospital for further evaluation, treatment, and management. We discuss the case with Dr. Ness, who is on-call for the Hospitalist Service. I also did discuss the case with Dr. Weiner. Dr. Ness does agree to accept the patient for further evaluation, treatment, and management. DISPOSITION: The patient is admitted under the care of the Hospitalist Service and Dr. Ness in stable condition. DO RAVINDRA HAMLIN/miguel /[id number] d: 08/15/16 2335 t: 08/18/16 0701, OUTPATIENT REPORT
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
[~2016-08-15 13:44] MED LIST changes: +AFRIN) (GENASAL15 ML NOSE; +ALDACTONE25 MG PO; +HUMIBID LA (MU600 MG PO; +LASIX40 MG PO; +NORVASC5 MG PO
[2016-08-15 14:09] LABS: BASOPHIL % 0.4 %; EOSINOPHIL # 0.1 K/uL (0.0-0.5); EOSINOPHIL % 1.3 %; HEMATOCRIT 39.9 % (33.0-46.0); HEMOGLOBIN 12.2 g/dL (10.0-15.0); IMMATURE GRANULOCYTE % 0.4 %; LYMPHOCYTE # 2.2 K/uL (0.8-4.0); LYMPHOCYTE % 29.3 %; MCH 28.1 pg (27.0-34.0); MCHC 30.6 gm/dL (32.0-36.5); MCV 91.9 fl (83.0-98.0); MONOCYTE # 0.6 K/uL (0.0-1.0); MONOCYTE % 8.3 %; MPV 11.3 fl (9.4-12.4); NEUTROPHIL # (ANC) 4.5 K/uL (1.8-7.8); NEUTROPHIL % 60.3 %; NRBC % 0 /100WBC (0-0.00); PLATELET COUNT 232 K/uL (150-450); RBC 4.34 M/uL (3.50-5.50); RDW-CV 16.7 % (11.9-14.6); WBC 7.5 K/uL (4.0-11.0)
[2016-08-15 14:22] LABS: INR - (THERAPEUTIC) 4.98 (0.92-1.07); PTT 50 SECONDS (25-32)
[2016-08-15 14:24] LABS: PROTIME 53.1 SECONDS (9.8-11.4)
[2016-08-15 14:34] LABS: ALBUMIN 3.2 gm/dL (3.5-5.0); ALK PHOS 83 IU/L (33-138); ALT 20 IU/L (12-78); ANION GAP 13.1 (10.0-19.0); AST 24 IU/L (10-40); BLOOD UREA NITROGEN 32 mg/dL (6-24); CALCIUM 8.8 mg/dL (8.5-10.5); CHLORIDE 105 mMol/L (96-110); CO2 25 mMol/L (22-32); CPK 52 IU/L (21-215); CREATININE 2.2 mg/dL (0.5-1.1); MAGNESIUM 2.3 mg/dL (1.8-2.6); POTASSIUM 5.1 mMol/L (3.7-5.1); SODIUM 138 mMol/L (135-145); TOTAL BILIRUBIN 0.6 mg/dL (0.0-1.5); TOTAL PROTEIN 7.3 g/dL (6.0-8.4)
[2016-08-15 14:37] LABS: ESTIMATED GFR (MDRD EQUATION) 22
--- NOTE | 2016-08-15 18:17 | NUR ---
P:Report called from ER at 1515 by Ayah MCFARLANE. Patient arrived per cart at 1555, with RN and transport bringing patient. Patient is alert and oreintated. Has O2 on at 2L. No c/o pain. Able to stand and pivot from cart to bed. Has SL in right inner forearm. Daughter is with patient. Patient is alert and oreintated and able to answer questions for self. Reports feeling much better. At 1630, Dr. Ness notified about patient being admitted, orders given for diet. P:Monitor for hypotension, patient safety
[2016-08-16 03:55] LABS: BASOPHIL % 0.6 %; EOSINOPHIL # 0.2 K/uL (0.0-0.5); EOSINOPHIL % 3.2 %; HEMATOCRIT 34.6 % (33.0-46.0); HEMOGLOBIN 10.5 g/dL (10.0-15.0); IMMATURE GRANULOCYTE % 0.2 %; LYMPHOCYTE # 1.5 K/uL (0.8-4.0); LYMPHOCYTE % 28.8 %; MCH 28.2 pg (27.0-34.0); MCHC 30.3 gm/dL (32.0-36.5); MCV 92.8 fl (83.0-98.0); MONOCYTE # 0.6 K/uL (0.0-1.0); MONOCYTE % 11.8 %; MPV 11.5 fl (9.4-12.4); NEUTROPHIL % 55.4 %; NRBC % 0 /100WBC (0-0.00); RBC 3.73 M/uL (3.50-5.50); RDW-CV 16.5 % (11.9-14.6); WBC 5.3 K/uL (4.0-11.0)
[2016-08-16 04:03] LABS: PLATELET COUNT 183 K/uL (150-450)
[2016-08-16 04:12] LABS: ALBUMIN 2.7 gm/dL (3.5-5.0); ANION GAP 9.7 (10.0-19.0); CALCIUM 8.1 mg/dL (8.5-10.5); CREATININE 1.7 mg/dL (0.5-1.1); MAGNESIUM 2.2 mg/dL (1.8-2.6); PHOSPHORUS 3.7 mg/dL (2.5-4.9); POTASSIUM 4.7 mMol/L (3.7-5.1)
--- NOTE | 2016-08-16 04:20 | NUR ---
Significant Event: A/0X3. RESTED IN BED ALL OF SHIFT. TURNS SELF. AFEBRILE. VSS ON 2L. TYLENOL GIVEN X1 FOR A HEADACHE. PATIENT WAS ABLE TO FIND RELIEF AND NO C/O OF PAIN THE REST OF THE SHIFT. IV TO R) AC WITH NS @ 30 MLS/H FOR 1L. THEN SL. ORTHOSTATICS -. NEED ONE MORE SET THIS AM. VOIDS FINE. NO BM THIS SHIFT. Follow up: CONTINUE WITH PLAN OF CARE.
[2016-08-16 10:34] LABS: PROTIME 56.5 SECONDS (9.8-11.4)
[2016-08-16 10:36] LABS: INR - (THERAPEUTIC) 5.29 (0.92-1.07)
--- NOTE | 2016-08-16 13:15 | NUR ---
Introduced self and role of care management to patient. Patient lives in [place] with her and 2 daughters. She has been using a walker for the last few weeks she says. She says told her she would probably go home tomorrow. Does not anticipate discharge needs at this time. Will follow.
--- NOTE | 2016-08-16 16:02 | NUR ---
Significant Event: A/OX3, VSS ON ROOM AIR. NO COMPLAINTS OF PAIN THIS SHIFT. PT. GETS UP SBA TO BATHROOM, HAS BEEN UP IN CHAIR PART OF THE DAY. IV TO R)FA HAS NS @ 30ml/HR X1 LITER. ATE ALL OF MEALS TODAY. LARGE BM TODAY, VOIDING FINE. LABS IN AM. NEEDS ORTHOSTATICS DAILY. STILL HOLDING COUMADIN. PT/OT WORKED WITH PATIENT TODAY. Follow up: CONTINUE WITH POC.
[2016-08-17 04:04] LABS: HEMATOCRIT 33.2 % (33.0-46.0); HEMOGLOBIN 10.2 g/dL (10.0-15.0)
--- NOTE | 2016-08-17 04:09 | NUR ---
Significant Event: Pt A&Ox3. VS stable, remains on RA while awake and 2L while sleeping. No c/o pain. HR remains in Afib. Up with SBA to bathroom. NS x1L finished. PIV in RFA, SL. SBP's were 100-130's overnight. Follow up: Continue plan of care. Plan for d/c today.
[2016-08-17 04:17] LABS: ANION GAP 9.9 (10.0-19.0); CALCIUM 8.3 mg/dL (8.5-10.5); CREATININE 1.4 mg/dL (0.5-1.1); MAGNESIUM 2.1 mg/dL (1.8-2.6); POTASSIUM 4.9 mMol/L (3.7-5.1)
[2016-08-17 07:34] LABS: INR - (THERAPEUTIC) 3.77 (0.92-1.07); PROTIME 40.1 SECONDS (9.8-11.4)
--- NOTE | 2016-08-17 12:35 | NUR ---
PATIENT A/OX3, VSS ON ROOM AIR. NO COMPLAINTS OF PAIN, PT. IS STIFF WHEN GETTING UP AND WALKING AROUND. ORTHOSTATIC BP'S WERE NEGATIVE THIS AM. IV REMOVED FROM R)FA WITHOUT COMPLICATIONS. DISMISSAL INSTRUCTIONS GONE OVER WITH PATIENT AND , NO NEW MEDICATIONS STARTED AND NO FURTHER QUESTIONS AT THIS TIME. ALL BELONGINGS SENT HOME WITH PATIENT. PT. KNOWS TO GET PT/INR CHECKED ON THE OR .
== END 2016-08-17 12:00 | disposition disaster alternative care site (69) ==
LOC: GMED 13:44 → GPCU 15:01
PROVIDERS: Emergency Medicine; Hospitalist; ADMIT Internal Medicine
DX: I95.2 Hypotension due to drugs (principal); T50.905A Adverse effect of unspecified drugs, medicaments and biological substances, initial encounter; N17.9 Acute kidney failure, unspecified; E86.0 Dehydration; I13.0 Hypertensive heart and chronic kidney disease with heart failure and stage 1 through stage 4 chronic kidney disease, or unspecified chronic kidney disease; N18.3 Chronic kidney disease, stage 3 (moderate); I50.22 Chronic systolic (congestive) heart failure; I48.1 Persistent atrial fibrillation; I27.2 Other secondary pulmonary hypertension; D68.2 Hereditary deficiency of other clotting factors; Z86.718 Personal history of other venous thrombosis and embolism; Z86.711 Personal history of pulmonary embolism; Z96.653 Presence of artificial knee joint, bilateral; Z90.710 Acquired absence of both cervix and uterus; Z96.642 Presence of left artificial hip joint; Z79.01 Long term (current) use of anticoagulants; Z79.899 Other long term (current) drug therapy; Z88.2 Allergy status to sulfonamides; Z98.890 Other specified postprocedural states
CPT/HCPCS: G0378; G8987; G8988; G8989; J7030